=== PATIENT | female | born 1980 | race Caucasian/White ===

== ENCOUNTER → 2017-01-31 | Outpatient (CLI) | payer BC, OTHER | END | disposition home or self-care (01) | LOC: GMAB 15:24 | PROVIDERS: ATTEND Family Medicine | DX: N39.0 Urinary tract infection, site not specified (principal); D64.9 Anemia, unspecified; R50.9 Fever, unspecified ==

== ENCOUNTER 2017-02-01 09:38 | Emergency (ER) | payer BC ==
[2017-02-01 10:09] VITALS: TEMP 99.6
[2017-02-01] MEDS ORDERED: SODIUM CHLORIDE 0.9% 1000ML 1,000 ML IVS ONE (10:09)
--- NOTE | 2017-02-01 10:12 | ED.PDOC ---
History of Present Illness - General Chief Complaint: Fever Stated Complaint: headache, fever Time Seen by Provider: 02/01/17 10:09 Source: patient, RN notes reviewed, Vital Signs reviewed, RN/MD - Dr. Garcia called - saw pt yest. w/ neg flu, CXR and labs. ?UTI so started Cipro. Wants CT head, repeat CBC, lactic acid & if needed LP - History of Present Illness Timing/Duration: constant - Over past 3 days - did have stomach bug last week and just has not felt right since but fever and bodyaches started over weekend. Fever Severity/Quality: greater than 102 F - 103 degrees @ home Fever Therapy MOHEL: Ibuprofen, prescription medications, Tylenol Associated Symptoms: headache, muscle aches Review of Systems - Review of Systems Constitutional: States: chills, fever, malaise EENTM: States: no symptoms reported. Denies: ear pain, nose congestion, throat pain Respiratory: States: no symptoms reported. Denies: cough, short of breath Cardiology: States: no symptoms reported Gastrointestinal/Abdominal: States: see HPI. Denies: abdominal pain Genitourinary: States: no symptoms reported. Denies: dysuria, frequency, pain Musculoskeletal: States: muscle pain - generalized body aches Skin: States: no symptoms reported Neurological: States: headache - R eye and R occipital area All other Systems: No Change from Baseline Past Medical History (General) - Patient Medical History Hx Diabetes: No Surgical History: other - Social History Hx Tobacco Use: No Hx Alcohol Use: No Hx Substance Use: No Hx Substance Use Treatment: No Hx Depression: No - Female History Patient is a Female of Child Bearing Age (10 -59 yrs old): Yes Patient : Yes - Triage Comment ED Triage Comment: LMP- 3 weeks ago Family Medical History - Family History Mother Family History: Unknown Physical Exam - Physical Exam General Appearance: Alert, Comfortable, No apparent distress, Well Developed, Well Groomed, Well Nourished Eye Exam: bilateral normal ENT Exam: normal ENT inspection, hearing grossly normal, TMs normal, pharynx normal Neck: non-tender, full range of motion, supple, normal inspection Respiratory: lungs clear, normal breath sounds, no respiratory distress, no accessory muscle use Cardiovascular/Chest: regular rate, rhythm, no gallop, no murmur Gastrointestinal/Abdominal: non tender, soft, no organomegaly, other - No CVA tenderness Extremity: normal inspection 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 Normal Lactic Acid level and normal head CT. Neck is supple so don't see need for LP at this time, patient is agreeable with plan. Patient given ER warnings for meningitis symptoms &/or worsening of symptoms. - Results/Orders Results/Orders: Laboratory Tests 02/01/17 02/01/17 10:30 10:30 WBC 5.5 RBC 4.03 L Hgb 11.8 L Hct 34.9 L MCV 86.6 MCH 29.2 MCHC 33.7 RDW 12.7 Plt Count 389 MPV 6.2 L Absolute Neuts (auto) 4.20 Absolute Lymphs (auto) 0.80 L Absolute Monos (auto) 0.40 Absolute Eos (auto) 0.00 Absolute Basos (auto) 0.00 Neutrophils % 76.3 Lymphocytes % 15.0 L Monocytes % 8.0 Eosinophils % 0.3 L Basophils % 0.4 Lactic Acid 1.1 - EKG/XRAY/CT CT Ordered: Yes - Head: normal perr Radiologist Departure - Departure Clinical Impression: Acute viral syndrome Time of Disposition: 11:26 Disposition: Discharge to Home or Self Care Condition: Good Departure Forms: ED Discharge - Pt. Copy, Patient Portal Self Enrollment Instructions: DI for Viral Syndrome Diet: resume usual diet Activity: increase activity as tolerated Referrals: Leo Negro MD [Primary Care Provider] - 1-2 Weeks Home Medications: Ambulatory Orders 07/28/15
--- NOTE | 2017-02-01 11:04 | CT ---
EXAM DESCRIPTION: Head CT without contrast CLINICAL HISTORY: Headache. Occipital and right orbital pain COMPARISON: None. TECHNIQUE: Noncontrast spiral CT of the brain. This exam was performed according to our departmental dose-optimization program, which includes automated exposure control, adjustment of the mA and/or kV according to patient size and/or use of iterative reconstruction technique FINDINGS: No intracranial hemorrhage, infarction or mass lesion. Normal perez-white matter differentiation Ventricles are normal in size and configuration No calvarial or skullbase fracture. No fluid in the paranasal sinuses or mastoid air cells IMPRESSION: Negative noncontrast head CT . Electronically signed by: Leo Man MD 02/01/2017 11:03 AM CDT
[2017-02-01 11:41] VITALS: BP 119/76; O2SAT 100
== END 2017-02-01 11:41 | disposition home or self-care (01) ==
LOC: ER 09:38
DX: B34.9 Viral infection, unspecified (principal)
CPT/HCPCS: 36415; 70450; 83605; 85025; J7030

== ENCOUNTER → 2017-02-03 | Outpatient (CLI) | payer BC | END | disposition home or self-care (01) | LOC: GMAB 11:20 | PROVIDERS: ATTEND Family Medicine | DX: R50.9 Fever, unspecified (principal) ==

== ENCOUNTER → 2017-02-08 | Outpatient (CLI) | payer BC ==
--- NOTE | 2017-02-09 08:35 | CT ---
EXAM DESCRIPTION: Abdomen/Pelvis w/wo Contrast CLINICAL HISTORY: FEVER . Abdominal pain. COMPARISON: None. TECHNIQUE: CT of the abdomen and pelvis was performed before and after intravenous contrast. Multiple axial images and multiplanar reconstructions were generated. This exam was performed according to our departmental dose-optimization program, which includes automated exposure control, adjustment of the mA and/or kV according to patient size and/or use of iterative reconstruction technique. FINDINGS: Lung bases: The visualized lung bases are clear. Solid organs: The gallbladder is somewhat small, which may be in part due to contraction. There is mild hyperenhancement of the gallbladder mucosa, with possible wall thickening. The liver, spleen, pancreas, kidneys, and adrenal glands are normal. Gastrointestinal: The stomach and small intestine are unremarkable. Scattered colonic diverticulosis is demonstrated without CT evidence for diverticulitis. The appendix is normal. No free fluid or free air. Vascular: Normal. Lymph nodes: No pathologically enlarged lymph nodes are present by CT size criteria. Musculoskeletal and soft tissues: Mild vacuum disc at L5-S1. No destructive osseous lesion. Mild dextroconvex curvature of the lumbar spine. Urinary bladder and pelvic organs: The urinary bladder is normal. The uterus and adnexal structures are unremarkable. IMPRESSION: 1. Possible gallbladder wall thickening versus pericholecystic fluid with relatively increased enhancement of the gallbladder mucosa. Correlate for cholecystitis. A right upper quadrant ultrasound may further evaluate. 2. Rare colonic diverticulosis without CT evidence for diverticulitis. 3. Other findings as above. Electronically signed by: Bhaskar Ordonez MD 02/09/2017 8:33 AM CDT
--- NOTE | 2017-02-09 08:39 | CT ---
EXAM DESCRIPTION: Chest w/Contrast CLINICAL HISTORY: FEVER COMPARISON: None TECHNIQUE: Multiple axial images of the chest following intravenous contrast. Multiplanar reconstructions were provided. This exam was performed according to our departmental dose-optimization program, which includes automated exposure control, adjustment of the mA and/or kV according to patient size and/or use of iterative reconstruction technique. FINDINGS: Lungs: 3 mm right lower lobe pulmonary nodule on series 4 image 29 which is nonspecific but most likely post infectious/inflammatory. No confluent airspace consolidation, pleural effusion, or pneumothorax. Mediastinum: The heart is normal in size. There is no pericardial effusion. The trachea and esophagus are unremarkable. Lymph nodes: There are no pathologically enlarged lymph nodes by CT size criteria. Chest wall and lower neck: No significant finding. Bones: Multilevel mild thoracic spondylosis. No destructive osseous lesion. Upper abdomen: Unremarkable. IMPRESSION: 1. No acute CT chest findings. 2. Tiny 3 mm right lower lobe pulmonary nodule. If the patient is at increased risk for malignancy, optional CT chest follow-up in 12 months may be considered per guidelines below. No follow-up is indicated in a patient who is not at increased risk for malignancy. 2017 Fleischner Society Recommendations for Single Solid Lung Nodule Follow-Up based on size (average of long- and short-axis diameters) <6 mm Low-Risk Patient: No routine follow-up <6 mm High-Risk Patient: Optional CT at 12 months 6-8 mm Low-Risk Patient: CT at 6-[address] at 18-24 months 6-8 mm High-Risk Patient: CT at 6-[address] at 18-24 months >8 mm Low-Risk Patient: Consider CT, PET/CT or tissue sampling at 3 months >8 mm High-Risk Patient: Same as for low-risk patient Electronically signed by: Bhaskar Ordonez MD 02/09/2017 8:38 AM CDT
== END ==
LOC: CT 15:58
PROVIDERS: ATTEND Family Medicine
DX: R50.9 Fever, unspecified (principal); R51 Headache; R91.1 Solitary pulmonary nodule

== ENCOUNTER → 2017-04-07 | Outpatient (CLI) | payer BC ==
--- NOTE | 2017-04-07 16:08 | US ---
EXAM DESCRIPTION: Gall Bladder CLINICAL HISTORY: 36 years, Female, ABNORMAL FINDINGS COMPARISON: FINDINGS: Head, body and visualized portion tail the pancreas unremarkable. IVC unremarkable. Gallbladder does not demonstrate stones or wall thickening. Common bile duct 3 mm. Intrahepatic ducts not dilated. Liver 15.0 cm with normal echotexture. Right kidney not that well visualized. Visualized portions unremarkable IMPRESSION: Study within normal limits. Gallbladder, biliary system and liver unremarkable Electronically signed by: Vadim Price MD 04/07/2017 4:07 PM MANAGER [employer]
== END | disposition home or self-care (01) ==
LOC: US 14:14
PROVIDERS: ATTEND Family Medicine
DX: R93.8 Abnormal findings on diagnostic imaging of other specified body structures (principal)